=== PATIENT | female | born 1950 | race Caucasian/White ===

== ENCOUNTER → 2017-05-03 | Outpatient (CLI) | payer OTHER ==
[2017-05-03 11:25] LABS: HEMOGLOBIN A1C 6.7 % (4.5-5.6)
== END | disposition home or self-care (01) ==
LOC: C.LAB1850 09:02
PROVIDERS: ATTEND Internal Medicine
DX: E11.9 Type 2 diabetes mellitus without complications (principal)

== ENCOUNTER → 2017-06-17 | Outpatient (CLI) | payer OTHER | END | disposition home or self-care (01) | LOC: C.PAPS 14:08 | PROVIDERS: ATTEND Obstetrics & Gynecology | DX: Z12.4 Encounter for screening for malignant neoplasm of cervix (principal) ==

== ENCOUNTER → 2017-08-20 | Outpatient (CLI) | payer OTHER ==
[2017-08-20 11:42] LABS: HEMOGLOBIN A1C 6.9 % (4.5-5.6)
[2017-08-20 13:20] LABS: ALBUMIN 3.8 gm/dl (3.4-5.0); ALT/SGPT 39 U/L (12-78); AST/SGOT 23 U/L (15-37); BLOOD UREA NITROGEN 29 mg/dl (7-18); CALCIUM 9.2 mg/dl (8.5-10.1); CARBON DIOXIDE 26 mmol/L (21-32); CHOLESTEROL 269 mg/dl (0-200); CREATININE 1.26 mg/dl (0.60-1.20); GLUCOSE 122 mg/dl (70-99); POTASSIUM 4.2 mmol/L (3.5-5.1); SODIUM 138 mmol/L (136-145)
[2017-08-20 13:24] LABS: ALKALINE PHOSPHATASE 60 U/L (45-117); LDL CHOLESTEROL CALCULATED 196 mg/dl; TOTAL PROTEIN 7.7 gm/dl (6.4-8.2)
== END | disposition home or self-care (01) ==
LOC: C.LAB1850 08:57
PROVIDERS: ATTEND Internal Medicine
DX: E11.9 Type 2 diabetes mellitus without complications (principal); E53.8 Deficiency of other specified B group vitamins; E55.9 Vitamin D deficiency, unspecified

== ENCOUNTER 2017-08-24 10:04 | Emergency (ER) | payer OTHER ==
[~2017-08-24] VITALS: Ht 172.7 cm; Wt 87.3 kg
[2017-08-24 10:11] VITALS: TEMP 36.7; Ht 172.7 cm; Wt 87.3 kg
[2017-08-24] MEDS ORDERED: SODIUM CHLORIDE 0.9% 1000ML 1,000 ML IV STA (10:32)
[2017-08-24] MEDS ORDERED: ASPI81TA28 PO (10:38)
[2017-08-24] MEDS ORDERED: MELO7.5T5 PO (10:38)
[2017-08-24] MEDS ORDERED: SITA50TA3 PO (10:38)
[2017-08-24] MEDS ORDERED: LISI-788 PO (10:38)
[2017-08-24] MEDS ORDERED: RANI150T85 PO (10:38)
[2017-08-24] MEDS ORDERED: LEVO125T72 PO (10:38)
[2017-08-24] MEDS ORDERED: GLC500 PO (10:38)
[2017-08-24] MEDS ORDERED: MEDR2.5T PO (10:38)
[2017-08-24] MEDS ORDERED: EST5 PO (10:38)
[2017-08-24] MEDS ORDERED: OMEG12006 PO (10:38)
[2017-08-24] MEDS ORDERED: CYAN100020 PO (10:39)
[2017-08-24] MEDS ORDERED: CHOL1CAP57 PO (10:39)
--- NOTE | 2017-08-24 10:39 | EMERGENCY ROOM VISIT NOTE ---
History Report prepared by Chris: Maurice Rees Under the Supervision of: Dr. Jaleel Daniels M.D. First contact with patient: 10:27 Chief Complaint: URINARY SYMPTOMS Stated Complaint: KIDNEY-POSSIBLE BLOCKAGE-REFERRED BY DOCTOR History of Present Illness The patient is a 67 year old female who presents to the Emergency Room with complaints of constant right flank pain beginning a week ago. The patient states she was evaluated by her arthritis doctor the other day and had blood work performed. She reports she received a call yesterday stating her kidney function was slightly elevated. The patient notes she did not have an appointment with her PCP until next month, so she was told to come to the ED. She states her flank pain is fairly localized unless she moves into specific positions. The patient reports this movement causes her symptoms to radiate around her side. She notes she has had a cough and congestions from allergies, and she denies coughing with force. The patient states she did not notice that her urine was darker until she urinated into the cup in the room. She reports she was gardening and doing extra stuff around the house. The patient notes she went to the chiropractor on Saturday, and it did not help as much as it normally does. She states she has a history of back pain from her arthritis, but her back pain is typically bilateral and not focused to one side. The patient reports a history of an appendectomy. She denies nausea, vomiting, fevers, chills, shortness of breath, burning with urination, trouble eating, trouble drinking, and a history of an ME. The patient notes she just had a normal echo completed recently for surveillance purposes. Source of History: patient Onset: week ago Position: other (right flank pain) Timing: constant Modifying Factors (Worsening): movement Associated Symptoms: + cough, No chills, No SOB, No nausea, No vomiting Note: Associated symptoms: congestion, darker urine Denies: burning with urination, trouble eating or drinking Review of Systems See HPI for pertinent positives and negatives. A total of ten systems were reviewed and were otherwise negative. Past Medical & Surgical Medical Problems: (1) Arthritis Family History Patient reports no known family medical history. Social History Smoking Status: Never Smoker Marital Status: Housing Status: lives with significant other Occupation Status: retired Current/Historical Medications Scheduled Aspirin (Aspirin Ec), 81 MG PO DAILY Cholecalciferol (Vitamin D3), 1,000 UNITS PO DAILY Cyanocobalamin (Vitamin B12), 1,000 MG PO DAILY Estradiol (Estradiol), 0.5 MG PO DAILY Levothyroxine Sodium (Synthroid), 125 MCG PO DAILY Lisinopril/Hctz (Zestoretic 20MG/25MG), 1 TAB PO BID Medroxyprogesterone (Provera), 1.25 MG PO DAILY Metformin HCl (Metformin HCl), 500 MG PO BID [place]-3 Fatty Acids ([place] 3), 1 CAP PO DAILY Ranitidine (Zantac), 150 MG PO BID Sitagliptin (Januvia), 50 MG PO DAILY Scheduled PRN Meloxicam (Mobic), 7.5 MG PO BID PRN for . Allergies Coded Allergies: Azithromycin (Unverified Allergy, Unknown, ., 08/24/17) Latex (Unverified Allergy, Unknown, ., 08/24/17) Penicillins (Unverified Allergy, Unknown, ., 08/24/17) Statins (Unverified Allergy, Unknown, ., 08/24/17) Sulfa Antibiotics (Unverified Allergy, Unknown, ., 08/24/17) Tetracycline (Unverified Allergy, Unknown, ., 08/24/17) Physical Exam Vital Signs Date Time Temp Pulse Resp B/P (MAP) Pulse Ox O2 Delivery O2 Flow Rate FiO2 08/24/17 13:00 68 16 125/96 96 Room Air 08/24/17 11:36 71 16 115/67 98 Room Air 08/24/17 10:11 36.7 80 20 144/78 97 Room Air Physical Exam GENERAL: Awake, alert, well-appearing, in no distress HENT: Normocephalic, atraumatic. Oropharynx unremarkable except for dry mucous membranes. EYES: Normal conjunctiva. Sclera non-icteric. NECK: Supple. No nuchal rigidity. FROM. No JVD. RESPIRATORY: Clear to auscultation. CARDIAC: Regular rate, normal rhythm. Extremities warm and well perfused. Pulses equal. ABDOMEN: Soft, non-distended. No tenderness to palpation. No rebound or guarding. No masses. RECTAL: Deferred. MUSCULOSKELETAL: Chest examination reveals no tenderness. The back is symmetrical on inspection without obvious abnormality. There is no CVA tenderness to palpation. No joint edema. Mild right flank tenderness. LOWER EXTREMITIES: Calves are equal size bilaterally and non-tender. No edema. No discoloration. NEURO: Normal sensorium. No sensory or motor deficits noted. SKIN: No rash or jaundice noted. Medical Decision & Procedures ER Provider Diagnostic Interpretation: Radiology results as stated below per my review and radiologist interpretation ABDOMEN AND PELVIS CT WITHOUT CONTRAST CT DOSE: 1284.66 mGy.cm HISTORY: right flank pain TECHNIQUE: Multiaxial CT images of the abdomen and pelvis were performed without the use of intravenous and oral contrast according to the standard department stone protocol. A dose lowering technique was utilized adhering to the principles of ALARA. COMPARISON STUDY: None. FINDINGS: The lung bases are clear. No pneumoperitoneum. No pneumatosis. No fractures within the visualized osseous structures. Hepatic steatosis. The unenhanced gallbladder, pancreas, and adrenal glands are unremarkable. Calcified granulomas within the spleen. No retroperitoneal lymphadenopathy. Normal caliber abdominal aorta. The bladder, uterus, and bilateral adnexa are unremarkable. Suboptimal evaluation for bowel pathology due to the lack of intravenous and oral contrast. However, there is no definite bowel wall thickening or obstruction. Colonic diverticulosis. No evidence for diverticulitis. The appendix is not identified and reportedly surgically absent. No renal or ureteral stones. No hydronephrosis. IMPRESSION: 1. No renal or ureteral stones. No hydronephrosis. 2. No bowel wall thickening or obstruction. 3. The appendix is not identified and likely surgically absent. 4. Colonic diverticulosis. No evidence for diverticulitis. 5. Hepatic steatosis. Electronically signed by: Tacho Foster M.D. 08/24/2017 11:38 AM Dictated Date/Time: 08/24/2017 11:29 AM Laboratory Results 08/24/17 11:10 Red Blood Count 3.85, Mean Corpuscular Volume 95.3, Mean Corpuscular Hemoglobin 31.9, Mean Corpuscular Hemoglobin Concent 33.5, Mean Platelet Volume 8.3, Neutrophils (%) (Auto) 39.3, Lymphocytes (%) (Auto) 47.7, Monocytes (%) (Auto) 7.1, Eosinophils (%) (Auto) 4.5, Basophils (%) (Auto) 0.5, Neutrophils # (Auto) 2.28, Lymphocytes # (Auto) 2.76, Monocytes # (Auto) 0.41, Eosinophils # (Auto) 0.26, Basophils # (Auto) 0.03 08/24/17 11:10 Test 08/24/17 11:05 08/24/17 11:10 Urine Color DK YELLOW Urine Appearance CLEAR (CLEAR) Urine pH 6.0 (4.5-7.5) Urine Specific [place] 1.027 (1.000-1.030) Urine Protein NEG (NEG) Urine Glucose (UA) NEG (NEG) Urine Ketones NEG (NEG) Urine Occult Blood NEG (NEG) Urine Nitrite NEG (NEG) Urine Bilirubin NEG (NEG) Urine Urobilinogen NEG (NEG) Urine Leukocyte Esterase NEG (NEG) White Blood Count 5.79 K/uL (4.8-10.8) Red Blood Count 3.85 M/uL (4.2-5.4) Hemoglobin 12.3 g/dL (12.0-16.0) Hematocrit 36.7 % (37-47) Mean Corpuscular Volume 95.3 fL (80-100) Mean Corpuscular Hemoglobin 31.9 pg (25-34) Mean Corpuscular Hemoglobin Concent 33.5 g/dl (32-36) Platelet Count 261 K/uL (130-400) Mean Platelet Volume 8.3 fL (7.4-10.4) Neutrophils (%) (Auto) 39.3 % Lymphocytes (%) (Auto) 47.7 % Monocytes (%) (Auto) 7.1 % Eosinophils (%) (Auto) 4.5 % Basophils (%) (Auto) 0.5 % Neutrophils # (Auto) 2.28 K/uL (1.4-6.5) Lymphocytes # (Auto) 2.76 K/uL (1.2-3.4) Monocytes # (Auto) 0.41 K/uL (0.11-0.59) Eosinophils # (Auto) 0.26 K/uL (0-0.5) Basophils # (Auto) 0.03 K/uL (0-0.2) RDW Standard Deviation 43.4 fL (36.4-46.3) RDW Coefficient of Variation 12.6 % (11.5-14.5) Immature Granulocyte % (Auto) 0.9 % Immature Granulocyte # (Auto) 0.05 K/uL (0.00-0.02) Anion Gap 6.0 mmol/L (3-11) Est Creatinine Clear Calc Drug Dose 58.7 ml/min Estimated GFR () 61.3 Estimated GFR (Non- 52.9 BUN/Creatinine Ratio 21.8 (10-20) Calcium Level 9.2 mg/dl (8.5-10.1) Total Bilirubin 0.3 mg/dl (0.2-1) Direct Bilirubin < 0.1 mg/dl (0-0.2) Aspartate Amino Transf (AST/SGOT) 24 U/L (15-37) Alanine Aminotransferase (ALT/SGPT) 36 U/L (12-78) Alkaline Phosphatase 63 U/L (45-117) Total Protein 7.3 gm/dl (6.4-8.2) Albumin 3.8 gm/dl (3.4-5.0) Lipase 208 U/L (73-393) Laboratory results reviewed by me Medications Administered Medications (Trade) Dose Ordered Sig/Goyo Route Start Time Stop Time Status Last Admin Dose Admin Sodium Chloride 1,000 ml @ 999 mls/hr Q1H1M STAT IV 08/24/17 10:32 08/24/17 11:32 DC 08/24/17 11:11 999 MLS/HR Dexamethasone Sodium Phosphate (Dexamethasone Inj Pf) 10 mg NOW ONCE IV 08/24/17 12:45 08/24/17 12:47 DC 08/24/17 12:56 10 MG ED Course 1030: The patient was evaluated in room B11B. A complete history and physical exam was performed. 1244: I reevaluated the patient. Discussed results and discharge instructions: she verbalized understanding and agreement. The patient is ready for discharge. Medical Decision I reviewed the patient's past medical history, medications, and the nursing notes as described above. Differential diagnosis: Etiologies such as renal colic, appendicitis, diverticulitis, mesenteric ischemia, aortic pathology, infections, inflammatory bowel disease, PUD, biliary pathology, UTI, as well as others were entertained. The patient is a 67-year-old woman who presents emergency department for evaluation after having outpatient labs showing newly worsening renal function in the setting of right flank pain per hpi. On arrival, the patient is in no acute distress, afebrile stable vital signs. On exam the patient has mild right flank tenderness. Abdomen otherwise benign. WBC within normal limits. Creatinine improved to 1.09 from 1.25 several days ago on outpatient testing. BUN/creatinine> 20 suggesting prerenal etiology. UA negative for infection. CT abdomen pelvis unremarkable negative for renal stones. Patient feeling improved after IV fluid hydration. Symptoms most likely related to dehydration provoking muscle aches/strain. Will give dose of dexamethasone as anti- inflammatory for pain relief. Plan for PCP follow-up for continued renal monitoring. Findings and plan for follow-up reviewed with patient. Patient agreeable and d/c'd per discharge instructions. Medication Reconcilliation Current Medication List: was personally reviewed by me Blood Pressure Screening Patient's blood pressure: Normal blood pressure Blood pressure disposition: Did not require urgent referral Impression Primary Impression: Right flank pain Scribe Attestation The scribe's documentation has been prepared under my direction and personally reviewed by me in its entirety. I confirm that the note above accurately reflects all work, treatment, procedures, and medical decision making performed by me. Departure Information Dispostion Home / Self-Care Referrals RV. Olivares MD (PCP) Forms HOME CARE DOCUMENTATION FORM, IMPORTANT VISIT INFORMATION Patient Instructions ED Flank Pain Uncertain Cause, ED Neck Back Pain General, My [facility] Additional Instructions Please follow up with your primary care physician in the next 1-3 days for re- evaluation and to continue to monitor your kidney function. Your symptoms are most due to muscular strain likely provoked by dehydration. Otherwise, your exam, lab results, and CT scan did not show signs of an emergent condition at this time. Acetaminophen for pain as needed. Drink plenty of fluids to ensure hydration. Return to the emergency department for worsening symptoms as described in the accompanying instructions.
[2017-08-24 11:18] LABS: BASO % 0.5 %; BASO ABS # 0.03 K/uL (0-0.2); EOS % 4.5 %; EOS ABS # 0.26 K/uL (0-0.5); HEMATOCRIT 36.7 % (37-47); HEMOGLOBIN 12.3 g/dL (12.0-16.0); IG# 0.05 K/uL (0.00-0.02); LYMPH % 47.7 %; LYMPH ABS # 2.76 K/uL (1.2-3.4); MEAN CELL VOLUME 95.3 fL (80-100); MEAN CORPUSCULAR HEMOGLOBIN 31.9 pg (25-34); MEAN CORPUSCULAR HGB CONC 33.5 g/dl (32-36); MEAN PLATELET VOLUME 8.3 fL (7.4-10.4); MONO % 7.1 %; MONO ABS # 0.41 K/uL (0.11-0.59); NEUT % 39.3 %; NEUT ABS # 2.28 K/uL (1.4-6.5); PLATELET COUNT 261 K/uL (130-400); RED CELL DISTRIBUTION WIDTH CV 12.6 % (11.5-14.5); RED CELL DISTRIBUTION WIDTH SD 43.4 fL (36.4-46.3); WHITE BLOOD COUNT 5.79 K/uL (4.8-10.8)
--- NOTE | 2017-08-24 11:39 | DIAGNOSTIC IMAGING REPORT ---
ABDOMEN AND PELVIS CT WITHOUT CONTRAST CT DOSE: 1284.66 mGy.cm HISTORY: right flank pain TECHNIQUE: Multiaxial CT images of the abdomen and pelvis were performed without the use of intravenous and oral contrast according to the standard department stone protocol. A dose lowering technique was utilized adhering to the principles of ALARA. COMPARISON STUDY: None. FINDINGS: The lung bases are clear. No pneumoperitoneum. No pneumatosis. No fractures within the visualized osseous structures. Hepatic steatosis. The unenhanced gallbladder, pancreas, and adrenal glands are unremarkable. Calcified granulomas within the spleen. No retroperitoneal lymphadenopathy. Normal caliber abdominal aorta. The bladder, uterus, and bilateral adnexa are unremarkable. Suboptimal evaluation for bowel pathology due to the lack of intravenous and oral contrast. However, there is no definite bowel wall thickening or obstruction. Colonic diverticulosis. No evidence for diverticulitis. The appendix is not identified and reportedly surgically absent. No renal or ureteral stones. No hydronephrosis. IMPRESSION: 1. No renal or ureteral stones. No hydronephrosis. 2. No bowel wall thickening or obstruction. 3. The appendix is not identified and likely surgically absent. 4. Colonic diverticulosis. No evidence for diverticulitis. 5. Hepatic steatosis. Electronically signed by: Tacho Foster M.D. 08/24/2017 11:38 AM Dictated Date/Time: 08/24/2017 11:29 AM
[2017-08-24 11:42] LABS: ALBUMIN 3.8 gm/dl (3.4-5.0); ALKALINE PHOSPHATASE 63 U/L (45-117); ALT/SGPT 36 U/L (12-78); AST/SGOT 24 U/L (15-37); BLOOD UREA NITROGEN 24 mg/dl (7-18); CALCIUM 9.2 mg/dl (8.5-10.1); CARBON DIOXIDE 28 mmol/L (21-32); CREATININE 1.09 mg/dl (0.60-1.20); GLUCOSE 107 mg/dl (70-99); LIPASE 208 U/L (73-393); POTASSIUM 4.2 mmol/L (3.5-5.1); SODIUM 137 mmol/L (136-145); TOTAL PROTEIN 7.3 gm/dl (6.4-8.2)
[2017-08-24] MEDS ORDERED: DEXAMETHASONE **PF** INJ 10 MG/ML VIAL IV ONE (12:45)
[2017-08-24 13:00] VITALS: BP 125/96; PULSE 68; O2SAT 96
== END 2017-08-24 13:07 | disposition home or self-care (01) ==
LOC: C.EDB 10:07
DX: R10.9 Unspecified abdominal pain (principal); R94.4 Abnormal results of kidney function studies; J30.2 Other seasonal allergic rhinitis; Z79.82 Long term (current) use of aspirin; Z79.899 Other long term (current) drug therapy; Z79.84 Long term (current) use of oral hypoglycemic drugs; Z79.890 Hormone replacement therapy; Z88.0 Allergy status to penicillin; Z88.1 Allergy status to other antibiotic agents; Z88.2 Allergy status to sulfonamides; Z88.8 Allergy status to other drugs, medicaments and biological substances; Z91.040 Latex allergy status

== ENCOUNTER → 2017-08-29 | Outpatient (CLI) | payer OTHER ==
[~2017-08-29] MED LIST: ASPI81TA28 PO; CHOL1CAP57 PO; CYAN100020 PO; EST5 PO; GLC500 PO; LEVO125T72 PO; LISI-788 PO; MEDR2.5T PO; MELO7.5T5 PO; OMEG12006 PO; RANI150T85 PO; SITA50TA3 PO
[2017-08-29 10:10] LABS: BLOOD UREA NITROGEN 26 mg/dl (7-18); CALCIUM 9.1 mg/dl (8.5-10.1); CARBON DIOXIDE 27 mmol/L (21-32); CREATININE 1.12 mg/dl (0.60-1.20); GLUCOSE 136 mg/dl (70-99); POTASSIUM 4.3 mmol/L (3.5-5.1); SODIUM 137 mmol/L (136-145)
== END | disposition home or self-care (01) ==
LOC: C.LAB1850 08:23
PROVIDERS: ATTEND Internal Medicine
DX: R79.89 Other specified abnormal findings of blood chemistry (principal)